=== PATIENT | female | born 1970 | race Caucasian/White ===

== ENCOUNTER 2020-09-26 11:22 | Outpatient (CLI) | payer OTHER, SELFPAY ==
[2020-09-26 13:16] LABS: #Basophils 0.1 10x3/uL (0.0-0.2); #Monocytes 0.7 10x3/uL (0.0-1.1); #Neutrophils 5.4 10x3/uL (1.5-8.4); %Basophils 0.5 % (0.0-2.0); %Eosinophils 0.3 % (0.0-6.0); %Lymphocytes 35.1 % (18.0-47.0); %Neutrophils 56.8 % (40.0-75.0); Hemoglobin 12.7 g/dL (12.0-15.5); Mean Corpuscular HGB CONC 32.9 g/dL (32.0-36.0); Mean Corpuscular Hemoglobin 30.6 pg (27.0-33.0); Mean Platelet Volume 10.9 fl (7.4-10.4); Platelet Count 286 10x3/uL (150-450); RBC Distribution Width 13.2 % (11.5-14.5); Red Blood Cell (RBC) Count 4.15 10x6/uL (3.90-5.03); White Blood Cell (WBC) Count 9.5 10x3/uL (3.5-10.5)
[2020-09-26 13:52] LABS: Anion Gap 12 mmol/L (10-20); BUN (Urea Nitrogen) 10 mg/dL (7.0-18.7); Calc. Creatinine Clearance 0 mL/min (70-130); Calcium 9.4 mg/dL (7.8-10.44); Carbon Dioxide 29 mmol/L (22-29); Chloride 105 mmol/L (98-107); Glucose 93 mg/dL (70-105); Potassium 5.7 mmol/L (3.5-5.1); Sodium 140 mmol/L (136-145)
[2020-09-27 05:52] LABS: SARS-CoV-2 PCR by NAA Not Detected (NotDetected)
== END 2020-09-26 11:23 | disposition home or self-care (01) ==
LOC: LABBT 11:22
PROVIDERS: ATTEND Surgery
DX: Z01.812 Encounter for preprocedural laboratory examination (principal); D05.10 Intraductal carcinoma in situ of unspecified breast; Z20.822 Contact with and (suspected) exposure to COVID-19
CPT/HCPCS: 80048; 85025; 87635; U0003; U0005

== ENCOUNTER 2020-09-29 06:57 | Day surgery (SDC) | payer OTHER ==
[2020-09-28 11:19] VITALS: BMI 26.2
[2020-09-29] MEDS ORDERED: Ketorolac Tromethamine 30 MG/ML VIAL ONE (08:17)
[2020-09-29] MEDS ORDERED: Acetaminophen 500 MG TAB ONE (08:17)
[2020-09-29] MEDS ORDERED: Isosulfan Blue 50 MG/5 ML VIAL ONE (10:07)
[2020-09-29] MEDS ORDERED: Midazolam HCl 2 mg/2 ml Vial ONE ×2 (10:07→10:20)
[2020-09-29] MEDS ORDERED: EPINEPHrine 1 MG/ML AMP ONE (10:07)
[2020-09-29] MEDS ORDERED: Bupivacaine 0.25% HCL 30 ML VIAL ONE (10:07)
[2020-09-29] MEDS ORDERED: Fentanyl 100 MCG/2 ML VIAL ONE (10:20)
[2020-09-29] MEDS ORDERED: Glycopyrrolate 0.2 MG/ML 5 ML SYRINGE ONE (10:56)
[2020-09-29] MEDS ORDERED: Dexamethasone 20 MG/5 ML VIAL ONE (10:56)
[2020-09-29] MEDS ORDERED: PROPOFOL 200 MG/20 ML VIAL ONE (10:56)
[2020-09-29] MEDS ORDERED: Lidocaine 1% PF 5 ML VIAL ONE (10:56)
[2020-09-29] MEDS ORDERED: Ondansetron PF 4 MG/2 ML Vial ONE (10:56)
== END 2020-09-29 13:57 | disposition home or self-care (01) ==
LOC: SDC 06:57
PROVIDERS: ATTEND Surgery
PROC: 0HBT0ZZ Excision of Right Breast, Open Approach (ICD-10-PCS; principal; 2020-09-29)
DX: D05.11 Intraductal carcinoma in situ of right breast (principal); N60.91 Unspecified benign mammary dysplasia of right breast; Z87.891 Personal history of nicotine dependence
CPT/HCPCS: 19281; 76098; 88307; 88361; J0171; J0690; J1100; J1885; J2250; J2405; J2704; J3010; Q9968; S0020

== ENCOUNTER 2021-03-24 09:24 | Outpatient (CLI) | payer MEDICAID | END 2021-03-24 09:25 | disposition home or self-care (01) | LOC: BICMAMMO 09:24 | PROVIDERS: ATTEND Internal Medicine Hematology & Oncology | DX: Z13.820 Encounter for screening for osteoporosis (principal); Z78.0 Asymptomatic menopausal state; D05.11 Intraductal carcinoma in situ of right breast; T38.6X5A Adverse effect of antigonadotrophins, antiestrogens, antiandrogens, not elsewhere classified, initial encounter; M85.89 Other specified disorders of bone density and structure, multiple sites | CPT/HCPCS: 77080 ==

== ENCOUNTER 2022-10-05 13:16 | Outpatient (CLI) | payer MEDICAID | END 2022-10-05 13:17 | disposition home or self-care (01) | LOC: BICMAMMO 13:16 | PROVIDERS: ATTEND Radiology Radiation Oncology | DX: D05.11 Intraductal carcinoma in situ of right breast (principal) | CPT/HCPCS: 77066; G0279 ==

== ENCOUNTER 2023-11-26 13:05 | Outpatient (CLI) | payer MEDICAID | END 2023-11-26 13:06 | disposition home or self-care (01) | LOC: BICMAMMO 13:05 | PROVIDERS: ATTEND Radiology Radiation Oncology | DX: Z86.000 Personal history of in-situ neoplasm of breast (principal) | CPT/HCPCS: 77066; G0279 ==

== ENCOUNTER 2025-04-07 09:20 | Outpatient (CLI) | payer MEDICAID | END 2025-04-07 09:21 | disposition home or self-care (01) | LOC: ULT 09:20 | PROVIDERS: ATTEND Internal Medicine Gastroenterology | DX: R10.13 Epigastric pain (principal); R93.3 Abnormal findings on diagnostic imaging of other parts of digestive tract | CPT/HCPCS: 76705 ==